=== PATIENT | female | born 1980 | race Two or more races ===

== ENCOUNTER 2022-09-26 15:28 | Emergency (ER) | payer OTHER ==
[~2022-09-26] VITALS: Ht 160 cm; Wt 62.6 kg
== END 2022-09-26 19:04 | disposition home or self-care (01) ==
LOC: ER 15:28
DX: B00.89 Other herpesviral infection (principal); Z88.0 Allergy status to penicillin

== ENCOUNTER 2022-10-24 06:55 | Emergency (ER) | payer OTHER ==
[~2022-10-24] VITALS: Ht 160 cm; Wt 63.0 kg
[2022-10-24] MEDS ORDERED: KETO10TA2 PO (07:54)
[2022-10-24] MEDS ORDERED: ZITHROMAX500 MG PO (07:54)
[2022-10-24] MEDS ORDERED: BENADRYL25 MG PO (07:54)
[2022-10-24] MEDS ORDERED: BETAMETHASONE D15 G2 TOP (07:54)
[2022-10-24] MEDS ORDERED: MEDROL8 MG PO (07:54)
== END 2022-10-24 08:35 ==
LOC: ER 06:55
DX: T63.481A Toxic effect of venom of other arthropod, accidental (unintentional), initial encounter (principal); Y93.9 Activity, unspecified; Y92.9 Unspecified place or not applicable; Z88.0 Allergy status to penicillin

== ENCOUNTER 2023-04-28 10:28 | Emergency (ER) | payer OTHER ==
[~2023-04-28] VITALS: Ht 160 cm; Wt 62.6 kg
[~2023-04-28 10:28] MED LIST: BENADRYL25 MG PO; BETAMETHASONE D15 G2 TOP; KETO10TA2 PO; MEDROL8 MG PO; ZITHROMAX500 MG PO
== END 2023-04-28 11:01 | disposition home or self-care (01) ==
LOC: ER 10:28
DX: K00.7 Teething syndrome (principal); Z88.0 Allergy status to penicillin